=== PATIENT | female | born 1990 | race Caucasian/White ===

== ENCOUNTER → 2016-09-28 | Emergency (ER) | payer OTHER ==
[~2016-09-28] MED LIST: IBUPROFEN 800 MG/8 ML IJ IVPB ONE; PANTOPRAZOLE SODIUM 100 ML IVPB ONE
[2016-09-28 10:48] VITALS: BP 114/67; PULSE 80; TEMP 98; BMI 32.1
== END | disposition left against medical advice (07) ==
LOC: JER 10:43
DX: Z53.21 Procedure and treatment not carried out due to patient leaving prior to being seen by health care provider (principal)
CPT/HCPCS: 99281-25

== ENCOUNTER 2016-10-21 16:04 | Emergency (ER) | payer OTHER ==
[2016-10-21 16:35] VITALS: BMI 32.4
--- NOTE | 2016-10-21 19:22 | PDOC ---
History of Present Illness - General History Source: Patient Exam Limitations: No Limitations - History of Present Illness Initial Comments: 10/21/16 20:11 The patient is a 25-year-old female, with a significant past medical history of a fibroma and a ruptured ovarian cyst, who presents to the ED with 1 month of epigastric and inguinal pain. The patient recently visited her PHARMACOMETRICIAN doctor and they identified a new fibroma and want to see if it is growing. She reports taking Tylenol for her pain, but her pain progressively worsened in the past few days and the medication does not seem to help it anymore. She reports having difficulty eating and sleeping due to the pain. Pt also reports some pain on urination. She states that her urine feels hot but she denies any vaginal discharge or foul smelling urine. Last menstrual period was on September 16; patient is taking contraceptives. The patient denies any fever, chills, nausea, vomiting, diarrhea, constipation, shortness of breath, or chest pain. <Marium Dhaliwal - Last Filed: 10/21/16 20:11> - General History Source: Patient Exam Limitations: No Limitations <Sabra Romano - Last Filed: 10/22/16 00:08> - General Chief Complaint: Pain, Acute Stated Complaint: ABD PAIN Time Seen by Provider: 10/21/16 19:05 Past History <Marium Dhaliwal - Last Filed: 10/21/16 20:11> - Past Medical History Asthma: No Cancer: No Cardiac Disorders: No Diabetes: No HTN: No Seizures: No Thyroid Disease: No Other medical history: ovarian cyst - Immunization History Immunization Up to Date: Yes - Psycho/Social/Smoking Cessation Hx Anxiety: No Suicidal Ideation: No Smoking History: Never smoked Number of Cigarettes Smoked Daily: 0 Cigars Per Day: 0 Hx Alcohol Use: No Drug/Substance Use Hx: No Substance Use Type: None Hx Substance Use Treatment: No <Sabra Romano - Last Filed: 10/22/16 00:08> - Past Medical History Allergies/Adverse Reactions: Allergies Allergy/AdvReac Type Severity Reaction Status Date / Time No Known Allergies Allergy Verified 10/21/16 16:29 Home Medications: Ambulatory Orders Cephalexin Monohydrate [Keflex -] 500 mg PO BID #14 capsule 05/14/15 Dicyclomine HCl [Bentyl -] 10 mg PO TID PRN #28 capsule 10/22/16 Nitrofurantoin Monohyd/M-Cryst [Macrobid -] 100 mg PO BID #14 capsule 10/22/16 Ranitidine HCl [Zantac] 150 mg PO DAILY #30 tablet 10/22/16 Review of Systems - Review of Systems Able to Perform ROS?: Yes Comments:: 10/21/16 20:18 GENERAL/CONSTITUTIONAL: No: fever, chills, weakness. Yes: loss of appetite. HEAD, EYES, EARS, NOSE AND THROAT: No: change in vision, ear pain, discharge, sore throat, throat swelling. CARDIOVASCULAR: No: chest pain, lightheadedness, palpitations, syncope RESPIRATORY: No: cough, shortness of breath, wheezing, hemoptysis, stridor. GASTROINTESTINAL: No: nausea, vomiting, diarrhea, rectal bleeding, constipation. Yes: abdominal pain GENITOURINARY: No: hematuria, urgency, flank pain. Yes: frequency, dysuria MUSCULOSKELETAL: No: back pain, neck pain, joint pain, muscle swelling. SKIN AND BREASTS: No: lesions, pallor, rash or easy bruising. NEUROLOGIC: No: headache, vertigo, paresthesias, weakness ENDOCRINE: No: unexplained weight gain or loss HEMATOLOGIC/LYMPHATIC: No: anemia, easy bleeding, swelling nodes <Marium Dhaliwal - Last Filed: 10/21/16 20:11> *Physical Exam - Vital Signs Last Vital Signs Temp Pulse Resp BP Pulse Ox 98.1 F 90 16 137/77 97 10/21/16 18:13 10/21/16 18:13 10/21/16 18:13 10/21/16 18:13 10/21/16 18:13 - Physical Exam Comments: 10/21/16 20:25 GENERAL: The patient is in no acute distress. HEAD: Normal with no signs of trauma. EYES: PERRLA, EOMI, sclera anicteric, conjunctiva clear. ENT: Ears normal, nares patent, oropharynx clear without exudates. Moist mucous membranes. NECK: Normal range of motion, supple without lymphadenopathy, JVD, or masses. LUNGS: Breath sounds equal, clear to auscultation bilaterally. No wheezes, and no crackles. HEART:Regular rate and rhythm, normal S1 and S2 without murmur, rub or gallop. ABDOMEN: Soft, normoactive bowel sounds. No guarding, no rebound. (+)Left lower quadrant tenderness, epigastric tenderness. EXTREMITIES: Normal range of motion, no edema. No clubbing or cyanosis. No erythema, or tenderness. NEUROLOGICAL: Cranial nerves II through XII grossly intact. Normal speech. No focal neurological deficits. MUSCULOSKELETAL: Back non-tender to palpation, no CVA tenderness SKIN: Warm, Dry, normal turgor, no rashes or lesions noted. <Marium Dhaliwal - Last Filed: 10/21/16 20:11> - Vital Signs Last Vital Signs Temp Pulse Resp BP Pulse Ox 98.1 F 90 16 137/77 97 10/21/16 18:13 10/21/16 18:13 10/21/16 18:13 10/21/16 18:13 10/21/16 18:13 <Sabra Romano - Last Filed: 10/22/16 00:08> ED Treatment Course - LABORATORY CBC & Chemistry Diagram: 10/21/16 19:20 10/21/16 19:20 <Sabra Romano - Last Filed: 10/22/16 00:08> Medical Decision Making - Medical Decision Making 10/21/16 19:21 A portion of this note was documented by scribe services under my direction. I have reviewed the details of the note, within reason, and agree with the documentation with the following case summary and management plan written by me. Nursing documentation reviewed and incorporated into medical decision making 10/21/16 22:24 This is a 25-year-old female with no significant past medical history presented to emergency department with a complaint of abdominal pain. Patient states her symptoms have been present for the past month. Patient notes epigastric and lower abdominal pain. She describes her pain as sharp, rated 10/10, no radiation. No exacerbating factors. Pain is intermittent. No fevers or chills. No nausea, no vomiting, no diarrhea. No recent travel Patient is tolerating by mouth. Patient was seen by ELECTROPLATER HELPER who states that pt has a fibroma Pt concerned that this fibroma is enlarging Laboratory Tests 10/21/16 10/21/16 19:20 19:20 WBC 6.3 D Hgb 14.2 Hct 41.2 Plt Count 306 Neutrophils % 45.6 D Lymphocytes % 44.2 H D BUN 9 Creatinine 0.6 Random Glucose 131 H D AST 15 ALT 30 Total Amylase 62 Lipase 124 10/21/16 22:[address] demonstrates small periumbilical hernias, fat containing hernias Right complex ovarian mass Pt has no RLQ pain, pain is in the LLQ Exercise Science Internship: (tri) Begin of Report Content Referring Physician: Sabra Romano Patient Name: Nasrin Phillips THIS IS A PRELIMINARY REPORT FROM [facility] NURSE IMAGES: 488 EXAM DATE AND TIME: 2016-10-21 21:50:08.0 EXAM: CT ABDOMEN AND PELVIS WITH CONTRAST 6.2 cm complex right adenxal mass containing fat density and small calcification , 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 Advise further evaluation with ultrasound if there is concern for torsion. (In addition, if not surgically removed, advise yearly ultrasound follow-up to ensure stability.) Unremarkable left ovary. No bowel obstruction, colitis, free fluid or free air. Normal appendix. Diverticulosis colon without acute diverticulitis. Unremarkable pancreas, kidneys and gallbladder. Small periumbilical hernias containing fat. THIS DOCUMENT HAS BEEN ELECTRONICALLY SIGNED Candy Armstrong M.D. 10/21/2016 22:22 JEREMIAS Mcintosh Please call [facility] Logistics Analyst [phone] ([phone]) with questions. <Sabra Romano - Last Filed: 10/22/16 00:08> *DC/Admit/Observation/Transfer - Attestations Scribe Attestion: 10/21/16 20:26 Documentation prepared by Marium Dhaliwal, acting as medical psychotherapist for Sabra Romano MD. <Marium Dhaliwal - Last Filed: 10/21/16 20:11> - Discharge Dispostion Admit: No <Sabra Romano - Last Filed: 10/22/16 00:08> Diagnosis at time of Disposition: Hernia Ovarian cyst Qualifiers: Laterality: right Qualified Code(s): N83.20 - Unspecified ovarian cysts Urinary tract infection Qualifiers: Urinary tract infection type: acute cystitis Hematuria presence: without hematuria Qualified Code(s): N30.00 - Acute cystitis without hematuria - Discharge Dispostion Disposition: HOME Condition at time of disposition: Improved - Referrals Referrals: Leidy Day MD [Staff Physician] - - Patient Instructions Printed Discharge Instructions: DI for Ventral Hernia, DI for Abdominal Pain- Adult, DI for Ovarian Cyst Additional Instructions: Please follow up with your primary care physician and tripe finisher (within 2-3 days) You have a complex ovarian cyst that will need to be followed closely by your tripe finisher Return to the ER for any other concerns or complaints Please take medications as prescribed Print Language: QATARI
[2016-10-21 20:16] LABS: BASOPHIL 0.8 % (0-2.0); EOSINOPHIL 1.7 % (0-4.5); MCHC 34.5 g/dl (32.0-36.0); MEAN CELL VOLUME 86.9 fl (80-96); MEAN PLT VOLUME 7.8 fl (7.5-11.1); NEUTROPHILS 45.6 % (42.8-82.8); PLATELET COUNT 306 K/MM3 (134-434); RDW 13.3 % (11.6-15.6); WHITE BLOOD COUNT 6.3 K/mm3 (4.0-10.0)
[2016-10-21 20:43] LABS: ALBUMIN 4.3 g/dl (3.4-5.0); AMYLASE 62 U/L (25-115); ANION GAP 7 (8-16); CALCIUM 9.1 mg/dL (8.5-10.1); CO2 25 mmol/L (21-32); CREATININE 0.6 mg/dL (0.55-1.02); GLUCOSE,RANDOM 131 mg/dL (74-106); SGOT/AST 15 U/L (15-37); SGPT/ALT 30 U/L (12-78)
[2016-10-21 20:44] LABS: ALK PHOS 102 U/L (45-117); BILIRUBIN,TOTAL 0.3 mg/dL (0.2-1.0); TOT PROT 7.6 g/dl (6.4-8.2)
[2016-10-21] MEDS ORDERED: IBUPROFEN 800 MG/8 ML IJ IVPB ONE (22:08)
[2016-10-21] MEDS ORDERED: PANTOPRAZOLE SODIUM 40 MG in SODIUM CHLORIDE 100 ML IVPB ONE (22:09)
[2016-10-21 22:28] VITALS: BP 129/75; PULSE 71; TEMP 99.3
[2016-10-21 23:15] LABS: URINE COLOR YELLOW
[2016-10-21 23:16] LABS: URINE APPEARANCE CLEAR; URINE BILIRUBIN NEGATIVE (NEGATIVE); URINE BLOOD NEGATIVE (NEGATIVE); URINE GLUCOSE (UA) NEGATIVE (NEGATIVE); URINE KETONE NEGATIVE (NEGATIVE); URINE NITRITE NEGATIVE (NEGATIVE); URINE PROTEIN NEGATIVE (NEGATIVE)
[2016-10-21 23:17] LABS: URINE LEUK ESTERASE 1+ (NEGATIVE)
[2016-10-21 23:25] LABS: URINE MUCUS RARE; URINE RBC 5 /hpf (0-3); URINE WBC 6 /hpf (3-5)
[2016-10-21 23:26] LABS: URINE UROBILINOGEN 0.2 E.U/dl E.U./dl (0.2-1.0)
== END 2016-10-22 00:41 | disposition home or self-care (01) ==
LOC: JER 16:04
PROC: 3E033GC Introduction of Other Therapeutic Substance into Peripheral Vein, Percutaneous Approach (ICD-10-PCS; principal; 2016-10-21)
PROC: 3E0333Z Introduction of Anti-inflammatory into Peripheral Vein, Percutaneous Approach (ICD-10-PCS; 2016-10-21)
DX: N30.00 Acute cystitis without hematuria (principal); N83.291 Other ovarian cyst, right side; K42.9 Umbilical hernia without obstruction or gangrene
CPT/HCPCS: 36415; 74177-TC; 80053; 81003; 81015; 82150; 83690; 84703; 85025; 87086; 96365; 96375; 99284-25

== ENCOUNTER 2019-03-30 23:40 | Inpatient (IN) | payer OTHER ==
[~2019-03-30 23:40] MED LIST changes: +ELECTROLYTE-148 SOLN 500 ML IV ONE; -IBUPROFEN 800 MG/8 ML IJ IVPB ONE; -PANTOPRAZOLE SODIUM 100 ML IVPB ONE
[2019-03-30] MEDS ORDERED: ELECTROLYTE-148 SOLN 500 ML IV ONE (23:50)
[2019-03-31] MEDS: DEXTROSE 5%-LACTATED RINGERS 1,000 ML IV SCH (00:30)
[2019-03-31 00:50] LABS: BASO % 0.3 % (0-2.0); EOS % 0.3 % (0-4.5); HEMATOCRIT 28.4 % (32.4-45.2); HEMOGLOBIN 9.6 GM/dL (10.7-15.3); LYMPH % 17.5 % (8-40); MCH 28.8 pg (25.7-33.7); MCHC 33.9 g/dl (32.0-36.0); MEAN CELL VOLUME 84.8 fl (80-96); MONO % 6.7 % (3.8-10.2); NEUT % 75.2 % (42.8-82.8); PLATELET COUNT 171 K/MM3 (134-434); RBC 3.34 M/mm3 (3.60-5.2); RDW 15.5 % (11.6-15.6); WHITE BLOOD COUNT 8.2 K/mm3 (4.0-10.0)
[2019-03-31 01:04] LABS: INR 0.95 (0.83-1.09); PROTHROMBIN TIME (PATIENT) 11.2 SEC (9.7-13.0)
[2019-03-31 01:06] LABS: ACTIVATED PTT 24.7 SECONDS (25.2-36.5)
[2019-03-31 01:10] LABS: BLOOD UREA NITROGEN 15.5 mg/dL (7-18); CALCIUM 8.2 mg/dL (8.5-10.1); CREATININE 0.6 mg/dL (0.55-1.3)
[2019-03-31 02:16] VITALS: BMI 38.2
--- NOTE | 2019-03-31 03:28 | HP ---
Past Medical History - Admission Chief Complaint: Rupture of membrane History of Present Illness: 28 yo @ 39 weeks gestation, EDC 04/04/19, admitted for spontaneous rupture of membrane. Patient was initially scheduled for external version due to breech presentation. Upon admission, a sonogram performed at bedside showed vertex presentation. History Source: Patient Limitations to Obtaining History: No Limitations - Past Medical History ...: 7 ...Para: 3 ...Term: 2 ...: 0 ...Spon : 2 ...Induced : 1 ...Multiple Gestation: 0 ...LMP: 07/06/18 ... Weeks Gestation by Dates: 38.2 ...EDC by Dates: 04/12/19 ...EDC by Sono: 04/04/19 - Past Surgical History Past Surgical History: Yes: None Hx Myomectomy: No Hx Transabdominal Cerclage: No - Smoking History Smoking history: Never smoked Have you smoked in the past 12 months: Yes Aproximately how many cigarettes per day: 0 - Alcohol/Substance Use Hx Alcohol Use: No Home Medications - Allergies Allergies/Adverse Reactions: Allergies Allergy/AdvReac Type Severity Reaction Status Date / Time No Known Allergies Allergy Verified 02/05/19 11:53 - Home Medications Home Medications: Ambulatory Orders Ferrous Sulfate [Iron] 325 mg PO BID 02/05/19 Pnv No.95/Ferrous Fum/Folic AC [ Multivitamin Tablet] 1 each PO DAILY Family Disease History - Family Disease History Family History: Unremarkable Review of Systems - Review of Systems Constitutional: reports: No Symptoms Eyes: reports: No Symptoms HENT: reports: No Symptoms Neck: reports: No Symptoms Cardiovascular: reports: No Symptoms Respiratory: reports: No Symptoms Gastrointestinal: reports: No Symptoms Genitourinary: reports: Pain Musculoskeletal: reports: No Symptoms Neurological: reports: No Symptoms Psychiatric: reports: No Symptoms Pain Intensity: 6 Physical Exam - Maternity Vital Signs: Vital Signs Temperature 98.8 F 03/31/19 02:30 Pulse Rate 81 03/31/19 02:30 Respiratory Rate 20 03/31/19 02:30 Blood Pressure 106/54 L 03/31/19 02:30 O2 Sat by Pulse Oximetry (%) Constitutional: Yes: Well Nourished Eyes: Yes: Conjunctiva Clear HENT: Yes: Atraumatic Neck: Yes: Supple Cardiovascular: Yes: Regular Rate and Rhythm Lungs: Clear to auscultation - Abdominal Exam/OB Number of Fetuses: Single Presentation: Vertex - Vaginal Exam/OB Presentation: Vertex/Position Station: -2 - Physical Exam Musculoskeletal: Yes: WNL Extremities: Yes: WNL ...Motor Strength: WNL Psychiatric: Yes: Alert, Oriented - Labs Lab Results: CBC, BMP 03/31/19 00:30 03/31/19 00:30 Problem List - Problems (1) 39 weeks gestation of Code(s): Z3A.39 - 39 WEEKS GESTATION OF (2) Rupture of membranes with clear amniotic fluid Code(s): CXM9135 - Assessment/Plan 39 weeks gestation of Spontaneous rupture of membrane Admit to L&D Analgesia as needed Anticipate
[2019-03-31] MEDS ORDERED: PROMETHAZINE HCL 25 MG/1 ML VIAL IVPUSH ONE (03:37)
[2019-03-31] MEDS ORDERED: BUTORPHANOL TARTRATE 2 MG/ML VIAL IVPUSH PRN (03:37)
[2019-03-31] MEDS ORDERED: OXYTOCIN 30 UNITS in 0.9% NS 30 UNIT/500 ML INFUS.BAG IVPB ONE ×2 (03:51→06:31)
[2019-03-31] MEDS: ELECTROLYTE-148 SOLN 1,000 ML IV SCH (07:30)
[2019-03-31] MEDS ORDERED: BUPIVACAINE 0.75% IN DEXTROSE/PF 2ML AMPULE NR ONE (07:32)
--- NOTE | 2019-03-31 07:55 | PN ---
Progress Note (short form) - Note Progress Note: Patient progressed to 9cm but head failed to descent. Suspect macrosomia. Decision made for Consent signed Prep and shave Anesthesia to see patient. Problem List - Problems (1) 39 weeks gestation of Code(s): Z3A.39 - 39 WEEKS GESTATION OF (2) Rupture of membranes with clear amniotic fluid Code(s): KLM3544 -
[2019-03-31] MEDS ORDERED: CITRIC ACID/SODIUM CITRATE 30 ML UNIT-DOSE CUP PO ONE (08:04)
[2019-03-31] MEDS ORDERED: ePHEDrine SULFATE 50 MG/1 ML AMPULE ONE (08:21)
[2019-03-31] MEDS ORDERED: ceFAZolin SODIUM 1 GM VIAL ONE (09:02)
[2019-03-31] MEDS ORDERED: KETOROLAC TROMETHAMINE 30 MG/1 ML VIAL ONE (09:02)
[2019-03-31] MEDS ORDERED: METHYLERGONOVINE MALEATE 0.2 MG/1 ML AMP IM PRN (09:18)
[2019-03-31] MEDS ORDERED: IBUPROFEN 800 MG/8 ML IJ IVPB PRN (09:18)
--- NOTE | 2019-03-31 09:22 | OP ---
Operative Note - Note: Operative Date: 03/31/19 Pre-Operative Diagnosis: 39 weeks gestation / Arrest of descent Operation: Primary Low Transverse / Myomectomy Findings: Baby boy in OP position Post-Operative Diagnosis: Other (Arrest of descent / Leiomyoma of the uterus) Surgeon: Maty Cote Carpet Jack: Shaun Corrales Anesthesia: Spinal Specimens Removed: Placenta / Fibroid Estimated Blood Loss (mls): 700
[2019-03-31] MEDS: OXYTOCIN 20 UNITS in 0.9% NS 20 UNIT/1,000 ML INFUS.BAG IV SCH (09:30)
[2019-03-31] MEDS ORDERED: IBUPROFEN 600 MG TABLET (FP) PO PRN (09:37)
[2019-03-31] MEDS ORDERED: ONDANSETRON 4 MG/2 ML VIAL IVPUSH PRN (09:37)
[2019-03-31 09:39] LABS: VENOUS PC02 41.3 mmHg (41-51); VENOUS PH 7.33 (7.31-7.41); VENOUS PO2 32.7 mmHg (30-40)
[2019-03-31] MEDS: FERROUS SO4 325 MG TABLET (FP) PO SCH ×2 (10:41→16:30)
[2019-03-31] MEDS: PRENATAL VITAMINS W/ FOLIC ACID TABLET (FP) PO SCH (10:41)
[2019-03-31] MEDS: IBUPROFEN 600 MG TABLET (FP) PO PRN (22:48)
[2019-03-31] MEDS: SIMETHICONE 80 MG TAB.CHEW (FP) PO PRN (22:48)
[2019-03-31] MEDS: ACETAMINOPHEN 325 MG TABLET (FP) PO PRN (22:49)
--- NOTE | 2019-04-01 06:24 | PN ---
Post Progress Note - Subjective Subjective: doing well, pain controlled, breast feeding, not yet ambulating, tolerating PO, rich removed recently Post Day: 1 Type of Delivery: Primary C/S Vital Signs: Vital Signs Temperature 97.8 F 04/01/19 05:36 Pulse Rate 82 04/01/19 05:36 Respiratory Rate 18 04/01/19 06:00 Blood Pressure 102/46 L 04/01/19 05:36 O2 Sat by Pulse Oximetry (%) 99 03/31/19 11:35 Breast Exam: Yes: Other (deferred) Uterus: Yes: Fundus Firm Incision: Yes: [place] dry and intact, [place] intact Abdomen/GI: Yes: Abdomen soft Lochia, amount: Moderate Extremities: Yes: Calves non-tender Activity: Ambulating (encouraged), Other (not yet ambulating) - Labs Labs: CBC WBC 8.2 K/mm3 (4.0-10.0) 03/31/19 00:30 RBC 3.34 M/mm3 (3.60-5.2) L 03/31/19 00:30 Hgb 9.6 GM/dL (10.7-15.3) L 03/31/19 00:30 Hct 28.4 % (32.4-45.2) L D 03/31/19 00:30 MCV 84.8 fl (80-96) 03/31/19 00:30 MCH 28.8 pg (25.7-33.7) 03/31/19 00:30 MCHC 33.9 g/dl (32.0-36.0) 03/31/19 00:30 RDW 15.5 % (11.6-15.6) D 03/31/19 00:30 Plt Count 171 K/MM3 (134-434) D 03/31/19 00:30 MPV 9.0 fl (7.5-11.1) D 03/31/19 00:30 Absolute Neuts (auto) 6.2 K/mm3 (1.5-8.0) 03/31/19 00:30 Neutrophils % 75.2 % (42.8-82.8) D 03/31/19 00:30 Lymphocytes % 17.5 % (8-40) D 03/31/19 00:30 Monocytes % 6.7 % (3.8-10.2) 03/31/19 00:30 Eosinophils % 0.3 % (0-4.5) 03/31/19 00:30 Basophils % 0.3 % (0-2.0) 03/31/19 00:30 Nucleated RBC % 0 % (0-0) 03/31/19 00:30 Assessment/Plan 28 y/o on POD # 1 S/P PLTCS for arrest of decent in stable condition -Continue PP/post-op care
[2019-04-01] MEDS: SIMETHICONE 80 MG TAB.CHEW (FP) PO PRN ×3 (07:59→17:51)
[2019-04-01 08:04] LABS: BASO % 0.1 % (0-2.0); EOS % 0.1 % (0-4.5); LYMPH % 12.8 % (8-40); MCH 28.7 pg (25.7-33.7); MCHC 32.9 g/dl (32.0-36.0); MEAN CELL VOLUME 87.2 fl (80-96); MONO % 6.2 % (3.8-10.2); NEUT % 80.8 % (42.8-82.8); PLATELET COUNT 150 K/MM3 (134-434); RBC 2.18 M/mm3 (3.60-5.2); RDW 16.1 % (11.6-15.6); WHITE BLOOD COUNT 10.1 K/mm3 (4.0-10.0)
[2019-04-01] MEDS: FERROUS SO4 325 MG TABLET (FP) PO SCH ×2 (08:04→17:51)
[2019-04-01] MEDS: ACETAMINOPHEN 325 MG TABLET (FP) PO PRN ×4 (08:04→21:31)
[2019-04-01] MEDS: IBUPROFEN 600 MG TABLET (FP) PO PRN ×4 (08:05→21:30)
[2019-04-01 08:21] LABS: HEMOGLOBIN 6.3 GM/dL (10.7-15.3)
--- NOTE | 2019-04-01 09:16 | PN ---
Progress Note, Physician Chief Complaint: s/p c section under spinal anesthsia History of Present Illness: post op day one duramorph for post op pain control - Current Medication List Current Medications: Active Medications Acetaminophen (Tylenol -) 650 mg PO Q4H PRN PRN Reason: MILD PAIN Last Admin: 04/01/19 08:04 Dose: 650 mg Bisacodyl (Dulcolax Suppository -) 10 mg RC PRN PRN PRN Reason: CONSTIPATION Butorphanol Tartrate (Butorphanol Tartrate) 2 mg IVPUSH Q4H PRN PRN Reason: PAIN Last Admin: 03/31/19 03:50 Dose: 2 mg Diphtheria/Tetanus/Acell Pertussis (Boostrix -) 0.5 ml IM .ONCE ONE Stop: 04/01/19 10:01 Ferrous Sulfate (Feosol -) 325 mg PO BIDWM [facility] Last Admin: 04/01/19 08:04 Dose: 325 mg Dextrose/Lactated Ringer's (D5-Lr -) 1,000 mls @ 125 mls/hr IV ASDIR [facility] Last Admin: 03/31/19 00:30 Dose: 125 mls/hr Parenteral Electrolytes (Plasma-Lyte 148 -) 1,000 mls @ 125 mls/hr IV ASDIR [facility] Last Admin: 03/31/19 07:30 Dose: 125 mls/hr Oxytocin/Sodium Chloride (Normal Saline+20 Units Oxytocin -) 20 unit in 1,000 mls @ 125 mls/hr IV ASDIR [facility] Last Admin: 03/31/19 09:30 Dose: 125 mls/hr Ibuprofen (Motrin -) 600 mg PO Q4H PRN PRN Reason: PAIN LEVEL 1 - 3 Last Admin: 04/01/19 08:05 Dose: 600 mg Ibuprofen (Caldolor Injection -) 800 mg IVPB Q8H PRN PRN Reason: PAIN LEVEL 6-10 Last Admin: 03/31/19 16:26 Dose: 800 mg Ibuprofen (Motrin -) 600 mg PO Q4H PRN PRN Reason: PAIN LEVEL 1-5 Methylergonovine Maleate (Methergine Injection -) 0.2 mg IM Q4H PRN PRN Reason: Excessive Bleeding (L&D) Ondansetron HCl (Zofran Injection) 4 mg IVPUSH Q4H PRN PRN Reason: NAUSEA Oxycodone HCl (Roxicodone -) 5 mg PO Q4H PRN PRN Reason: PAIN LEVEL 4 - 6 Multivit/Folic Acid/Iron ( Vitamins (Sjr) -) 1 tab PO DAILY SHERRY Last Admin: 03/31/19 10:41 Dose: Not Given Simethicone (Mylicon -) 80 mg PO Q4H PRN PRN Reason: GAS Last Admin: 04/01/19 07:59 Dose: 80 mg - Objective Vital Signs: Vital Signs Temperature 97.8 F 04/01/19 05:36 Pulse Rate 82 04/01/19 05:36 Respiratory Rate 18 04/01/19 06:00 Blood Pressure 102/46 L 04/01/19 05:36 O2 Sat by Pulse Oximetry (%) 99 03/31/19 11:35 Constitutional: Yes: Well Nourished Cardiovascular: Yes: WNL Respiratory: Yes: WNL Gastrointestinal: Yes: WNL Labs: CBC, BMP 04/01/19 07:21 03/31/19 00:30 INR, PTT INR 0.95 (0.83-1.09) 03/31/19 00:30 Assessment/Plan No adverse anesthetic complications, pain controlled, no further intervention from the department of anesthesia
[2019-04-01] MEDS ORDERED: BISACODYL 10 MG SUPP.RECT RC PRN (09:18)
[2019-04-01] MEDS ORDERED: DIPHTH,PERTUSS(ACELL),TET 0.5 ML DISP.SYRIN IM ONE (10:00)
[2019-04-01] MEDS: PRENATAL VITAMINS W/ FOLIC ACID TABLET (FP) PO SCH (10:25)
[2019-04-02] MEDS: IBUPROFEN 600 MG TABLET (FP) PO PRN ×2 (05:10→20:36)
[2019-04-02] MEDS: ACETAMINOPHEN 325 MG TABLET (FP) PO PRN ×2 (05:11→13:11)
[2019-04-02] MEDS: FERROUS SO4 325 MG TABLET (FP) PO SCH ×2 (07:21→17:54)
[2019-04-02] MEDS: oxyCODONE HCL 5 MG TABLET PO PRN ×3 (07:25→20:35)
[2019-04-02] MEDS: SIMETHICONE 80 MG TAB.CHEW (FP) PO PRN ×3 (07:26→20:35)
[2019-04-02] MEDS: PRENATAL VITAMINS W/ FOLIC ACID TABLET (FP) PO SCH (09:54)
[2019-04-02 11:29] LABS: BASO % 0.2 % (0-2.0); EOS % 0.7 % (0-4.5); HEMATOCRIT 18.6 % (32.4-45.2); LYMPH % 14.1 % (8-40); MCH 29.4 pg (25.7-33.7); MCHC 33.8 g/dl (32.0-36.0); MEAN PLT VOLUME 8.9 fl (7.5-11.1); PLATELET COUNT 183 K/MM3 (134-434); RBC 2.14 M/mm3 (3.60-5.2); RDW 15.6 % (11.6-15.6); WHITE BLOOD COUNT 10.7 K/mm3 (4.0-10.0)
[2019-04-02 11:50] LABS: HEMOGLOBIN 6.3 GM/dL (10.7-15.3)
--- NOTE | 2019-04-02 14:16 | PN ---
Post Progress Note - Subjective Subjective: Patient is doing well, ambulating, tolerating PO, denies lightheadedness, weakness Type of Delivery: Primary C/S Vital Signs: Vital Signs Temperature 98.8 F 04/02/19 13:48 Pulse Rate 83 04/02/19 13:48 Respiratory Rate 20 04/02/19 13:48 Blood Pressure 109/66 04/02/19 13:48 O2 Sat by Pulse Oximetry (%) 99 03/31/19 11:35 Breast Exam: Yes: Other (deferred) Uterus: Yes: Fundus Firm Incision: Yes: [place] intact Abdomen/GI: Yes: Abdomen soft Lochia, amount: Moderate Extremities: Yes: Calves non-tender, Calf tenderness (bilaterally) Activity: Ambulating - Labs Labs: CBC WBC 10.7 K/mm3 (4.0-10.0) H 04/02/19 10:45 RBC 2.14 M/mm3 (3.60-5.2) L 04/02/19 10:45 Hgb 6.3 GM/dL (10.7-15.3) L* 04/02/19 10:45 Hct 18.6 % (32.4-45.2) L 04/02/19 10:45 MCV 87.0 fl (80-96) 04/02/19 10:45 MCH 29.4 pg (25.7-33.7) 04/02/19 10:45 MCHC 33.8 g/dl (32.0-36.0) 04/02/19 10:45 RDW 15.6 % (11.6-15.6) 04/02/19 10:45 Plt Count 183 K/MM3 (134-434) D 04/02/19 10:45 MPV 8.9 fl (7.5-11.1) 04/02/19 10:45 Absolute Neuts (auto) 8.7 K/mm3 (1.5-8.0) H 04/02/19 10:45 Neutrophils % 81.0 % (42.8-82.8) 04/02/19 10:45 Lymphocytes % 14.1 % (8-40) 04/02/19 10:45 Monocytes % 4.0 % (3.8-10.2) 04/02/19 10:45 Eosinophils % 0.7 % (0-4.5) D 04/02/19 10:45 Basophils % 0.2 % (0-2.0) 04/02/19 10:45 Nucleated RBC % 0 % (0-0) 04/02/19 10:45 Problem List - Problems (1) Anemia Code(s): D64.9 - ANEMIA, UNSPECIFIED Assessment/Plan 28 y/o on POD # 1 S/P PLTCS for arrest of decent, Severe asymptomatic anemia. Counseled regarding blood transfusion and accepted -Continue PP/post-op care -Transfuse 1 PRBC -CBC 4 hrs post transfusion
[2019-04-02 23:28] LABS: BASO % 0.3 % (0-2.0); EOS % 0.6 % (0-4.5); HEMATOCRIT 20.4 % (32.4-45.2); LYMPH % 19.5 % (8-40); MCH 29.4 pg (25.7-33.7); MCHC 34.4 g/dl (32.0-36.0); MEAN CELL VOLUME 85.5 fl (80-96); MEAN PLT VOLUME 8.7 fl (7.5-11.1); MONO % 6.4 % (3.8-10.2); NEUT % 73.2 % (42.8-82.8); PLATELET COUNT 182 K/MM3 (134-434); RBC 2.39 M/mm3 (3.60-5.2); RDW 15.1 % (11.6-15.6); WHITE BLOOD COUNT 10.3 K/mm3 (4.0-10.0)
[2019-04-03] LABS: PLATELET ESTIMATE ADEQUATE
--- NOTE | 2019-04-03 06:05 | PN ---
Post Progress Note - Subjective Subjective: Received 1U PRBC yesterday. No fevers/chills Not ambulating w difficulty. No symptoms of anemia. Post Day: 3 Type of Delivery: Primary C/S Vital Signs: Vital Signs Temperature 98.4 F 04/02/19 22:00 Pulse Rate 76 04/02/19 22:00 Respiratory Rate 20 04/02/19 22:00 Blood Pressure 112/59 L 04/02/19 22:00 O2 Sat by Pulse Oximetry (%) 99 03/31/19 11:35 Uterus: Yes: Fundus Firm Incision: Yes: [place] intact Abdomen/GI: Yes: Abdomen soft Lochia: Yes: Rubra Lochia, amount: Small Extremities: Yes: Calves non-tender Perineum: Yes: Intact Activity: Ambulating - Labs Labs: CBC WBC 10.3 K/mm3 (4.0-10.0) H 04/02/19 23:00 RBC 2.39 M/mm3 (3.60-5.2) L 04/02/19 23:00 Hgb 7.0 GM/dL (10.7-15.3) L 04/02/19 23:00 Hct 20.4 % (32.4-45.2) L 04/02/19 23:00 MCV 85.5 fl (80-96) 04/02/19 23:00 MCH 29.4 pg (25.7-33.7) 04/02/19 23:00 MCHC 34.4 g/dl (32.0-36.0) 04/02/19 23:00 RDW 15.1 % (11.6-15.6) 04/02/19 23:00 Plt Count 182 K/MM3 (134-434) 04/02/19 23:00 MPV 8.7 fl (7.5-11.1) 04/02/19 23:00 Absolute Neuts (auto) 7.5 K/mm3 (1.5-8.0) 04/02/19 23:00 Neutrophils % 73.2 % (42.8-82.8) 04/02/19 23:00 Neutrophils % (Manual) 64.0 % (42.8-82.8) 04/02/19 23:00 Band Neutrophils % 5.0 % 04/02/19 23:00 Lymphocytes % 19.5 % (8-40) D 04/02/19 23:00 Lymphocytes % (Manual) 24.0 % (8-40) 04/02/19 23:00 Monocytes % 6.4 % (3.8-10.2) 04/02/19 23:00 Monocytes % (Manual) 3 % (3.8-10.2) L 04/02/19 23:00 Eosinophils % 0.6 % (0-4.5) 04/02/19 23:00 Eosinophils % (Manual) 2.0 % (0-4.5) 04/02/19 23:00 Basophils % 0.3 % (0-2.0) 04/02/19 23:00 Basophils % (Manual) 0.0 % (0-2.0) 04/02/19 23:00 Myelocytes % (Man) 1 % (0-2) 04/02/19 23:00 Nucleated RBC % 0 % (0-0) 04/02/19 23:00 Metamyelocytes 1 % (0-2) 04/02/19 23:00 Platelet Estimate Adequate 04/02/19 23:00 Assessment/Plan 28yo s/p PLTCS, POD#3 Labs reviewed, poor response to 1U PRBC, discussed one additional unit today Dopplers negative for DVT Po Pain control Po Iron for anemia Routine PP care D/C to home tomorrow with follow up in one week. Shayy Henry MD
[2019-04-03 08:00] LABS: BASO % 0.3 % (0-2.0); EOS % 1.1 % (0-4.5); HEMATOCRIT 19.9 % (32.4-45.2); LYMPH % 20.1 % (8-40); MCH 29.3 pg (25.7-33.7); MCHC 34.3 g/dl (32.0-36.0); MEAN CELL VOLUME 85.4 fl (80-96); MEAN PLT VOLUME 8.4 fl (7.5-11.1); MONO % 5.9 % (3.8-10.2); NEUT % 72.6 % (42.8-82.8); PLATELET COUNT 195 K/MM3 (134-434); RBC 2.33 M/mm3 (3.60-5.2); WHITE BLOOD COUNT 9.6 K/mm3 (4.0-10.0)
[2019-04-03] MEDS: FERROUS SO4 325 MG TABLET (FP) PO SCH ×2 (08:00→18:29)
[2019-04-03 08:47] LABS: HEMOGLOBIN 6.8 GM/dL (10.7-15.3)
[2019-04-03] MEDS: PRENATAL VITAMINS W/ FOLIC ACID TABLET (FP) PO SCH (10:08)
[2019-04-03] MEDS: ACETAMINOPHEN 325 MG TABLET (FP) PO PRN (10:12)
[2019-04-03] MEDS: IBUPROFEN 600 MG TABLET (FP) PO PRN (10:13)
[2019-04-03] MEDS: SIMETHICONE 80 MG TAB.CHEW (FP) PO PRN (10:14)
[2019-04-03 13:09] LABS: ANISOCYTOSIS 0; HELMET CELLS 0; HOWELL-JOLLY BODIES 0; MACROCYTOSIS 0; OVALOCYTE 0; PLATELET ESTIMATE NORMAL; ROULEAU 0; SICKELED CELLS 0; TARGET CELLS 0; TEAR DROP CELLS 0; TOXIC GRANULATION 0
[2019-04-03 23:36] LABS: BASO % 0.4 % (0-2.0); HEMATOCRIT 28.5 % (32.4-45.2); HEMOGLOBIN 9.7 GM/dL (10.7-15.3); LYMPH % 17.7 % (8-40); MCH 29.4 pg (25.7-33.7); MCHC 33.9 g/dl (32.0-36.0); MEAN CELL VOLUME 86.8 fl (80-96); MEAN PLT VOLUME 9.2 fl (7.5-11.1); MONO % 6.5 % (3.8-10.2); NEUT % 74.4 % (42.8-82.8); PLATELET COUNT 200 K/MM3 (134-434); RBC 3.29 M/mm3 (3.60-5.2); RDW 14.9 % (11.6-15.6); WHITE BLOOD COUNT 11.6 K/mm3 (4.0-10.0)
[2019-04-04 00:33] LABS: PLATELET ESTIMATE ADEQUATE
[2019-04-04] MEDS: SIMETHICONE 80 MG TAB.CHEW (FP) PO PRN (03:39)
[2019-04-04] MEDS: ACETAMINOPHEN 325 MG TABLET (FP) PO PRN (03:39)
[2019-04-04] MEDS: IBUPROFEN 600 MG TABLET (FP) PO PRN (03:39)
--- NOTE | 2019-04-04 07:22 | DS ---
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 Vital Signs: Vital Signs Temperature 98.4 F 04/03/19 21:29 Pulse Rate 64 04/03/19 21:29 Respiratory Rate 20 04/03/19 21:29 Blood Pressure 129/79 04/03/19 21:29 O2 Sat by Pulse Oximetry (%) 99 03/31/19 11:35 Constitutional: Yes: Well Nourished, No Distress, Calm Eyes: Yes: WNL, Conjunctiva Clear, EOM Intact HENT: Yes: WNL, Atraumatic, Normocephalic Neck: Yes: WNL, Supple, Trachea Midline Cardiovascular: Yes: WNL, Regular Rate and Rhythm Respiratory: Yes: WNL, Regular, CTA Bilaterally Gastrointestinal: Yes: WNL ...Rectal Exam: Yes: WNL Renal/: Yes: WNL ....Post : Yes: Uterus firm, Uterus non-tender, Slight lochia rubra Breast(s): Yes: WNL Musculoskeletal: Yes: WNL Extremities: Yes: WNL Edema: LLE: Trace, RLE: Trace Integumentary: Yes: WNL Wound/Incision: Yes: Clean/Dry, Well Approximated, Sutures Intact Neurological: Yes: WNL, Alert, Oriented ...Motor Strength: WNL Psychiatric: Yes: WNL, Alert, Oriented Labs: CBC, BMP 04/03/19 22:23 03/31/19 00:30 Delivery - Delivery Type of Anesthesia: Spinal Episiotomy/Laceration: None EBL (cc): 700 Delivery, Single - Stages of Labor Date 1st Stage Initiatied: 03/30/19 Time 1st Stage Initiated: 23:30 Date 2nd Stage Initiated: 03/31/19 Time 2nd Stage Initiated: 06:45 Date of Delivery: 03/31/19 Time of Delivery: 08:37 Time Placenta Delivered: 08:38 Placenta: Yes: Expressed - 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 Name: Blanche Villanueva Gender: Male Weight: 7 lb 14 oz Position: OP Total Hours ROM (Hrs/Mins): 9h33m - 1 Minute Total Score: 9 5 Minutes Total Score: 9 - [place] Feeding Plan Initial Plan: Elected not to breastfeed exclusively throughout hospitalization Discharge Summary Reason For Visit: LABOR ADMIT Current Active Problems 39 weeks gestation of (Acute) Anemia (Acute) Rupture of membranes with clear amniotic fluid (Acute) Procedures: Principal: LST c/s Hospital Course: anemia , s/p blood transfusion Condition: Stable - Instructions Diet, Activity, Other Instructions: Regular Diet Follow up in one week for an incision check with Dr. Gaming Referrals: Dragan Gaming MD [Staff Physician] - Disposition: HOME - Home Medications Comprehensive Discharge Medication List: Ambulatory Orders Ferrous Sulfate [Iron] 325 mg PO BID 02/05/19 Pnv No.95/Ferrous Fum/Folic AC [ Multivitamin Tablet] 1 each PO DAILY Ibuprofen 600 mg PO Q6H PRN #30 tablet MDD 5 04/01/19 Oxycodone HCl/Acetaminophen [Percocet 5-325 mg Tablet -] 1 tab PO Q6H PRN 5 Days #20 tab MDD 5 04/01/19
[2019-04-04] MEDS: FERROUS SO4 325 MG TABLET (FP) PO SCH (08:28)
[2019-04-04] MEDS: ELECTROLYTE-148 SOLN 1,000 ML IV SCH (08:29)
[2019-04-04] MEDS: DEXTROSE 5%-LACTATED RINGERS 1,000 ML IV SCH (08:29)
[2019-04-04] MEDS: PRENATAL VITAMINS W/ FOLIC ACID TABLET (FP) PO SCH (09:26)
[2019-04-04] MEDS: OXYTOCIN 20 UNITS in 0.9% NS 20 UNIT/1,000 ML INFUS.BAG IV SCH (09:30)
[2019-04-04 12:32] VITALS: BP 115/80; PULSE 65; TEMP 98.9
--- NOTE | 2019-04-09 19:26 | PATH ---
Surgical Pathology Report Patient Name: CONSTANTINE JACKSON [facility]. Rec. #: [id number] /Age/Gender: 1990 (Age: 28) / F Account: [id number] Location: [facility] OBS/NURSE LIAISON Taken: 03/31/2019 Received: 04/01/2019 Reported: 04/09/2019 Physicians: Maty Cote M.D. Specimen(s) Received A: PLACENTA B: FIBROID Clinical History , 39.3 weeks, failure to descend and progress Final Diagnosis A. PLACENTA, SECTION: 490 G THIRD TRIMESTER PLACENTA WITH MODERATE TO SEVERE ACUTE CHORIOAMNIONITIS, MECONIUM-LADEN MACROPHAGES, AND TRIVASCULAR UMBILICAL CORD WITH FOCAL ACUTE MILD VASCULITIS. B. FIBROIDS, MYOMECTOMY: 42 G LEIOMYOMA(TA) WITH DEGENERATIVE CHANGES AND CALCIFICATIONS. Electronically Signed Violet Robledo M.D. Gross Description A. The specimen is received fresh labeled placenta and is a 490 gram, 17.5 x 17.0 x 2.9 cm. placenta with attached membranes and umbilical cord. The attached membranes are holt green, meconium stained, translucent with focal opacities and insert marginally. The umbilical cord measures 26 cm. in length and averages 1.2 cm. in diameter. The cord inserts eccentrically, 4.5 cm. to the nearest margin. No true knots or strictures are identified. Cut surface of the umbilical cord reveals 3 vessels. The surface is conrad green, meconium stained with moderate fibrin or position and appropriate caliber vessels. The maternal surface is red-brown with focal defects. Sectioning reveals red-brown, spongy parenchyma. No lesions are identified. P[employer] Room [employer] sections are submitted in three cassettes as follows: 1- membrane rolls and umbilical cord; 2-3- full thickness sections of placenta. B. Received in formalin labeled "fibroids," is a 42 g aggregate of 2 holt nodules measuring 2.7 and 4.5 cm in greatest dimension, consistent with fibroids. The smaller fibroid displays holt, rubbery parenchyma with whorled architecture. No areas of hemorrhage or necrosis are identified. The larger fibroid displays diffuse conrad-brown, degenerative parenchyma. P[employer] Room Manager sections are submitted in 3 cassettes as follows: 1-smaller fibroid; 2-3-larger fibroid. DL/04/04/2019 [facility]/04/04/2019
--- NOTE | 2019-04-15 08:47 | OP ---
DATE OF OPERATION: 03/30/2019 PREOPERATIVE DIAGNOSIS: A 39 weeks gestation with spontaneous rupture of membrane and arrest of descent. POSTOPERATIVE DIAGNOSIS: Arrest of descent and fibroid uterus. SURGEON: Maty Cote MD UPHOLSTERY SEWER: IMANI Chavarria ANESTHESIA: Spinal. ESTIMATED BLOOD LOSS: 700 mL. DESCRIPTION OF PROCEDURE: Patient was taken to the operating room where spinal anesthesia was administered. Patient was then prepped and draped in appropriate sterile fashion. A Pfannenstiel skin incision was then made and carried down through the underlying layer of fascia. The fascia was incised in the midline and extended laterally. The inferior aspect of the fascial incision was then grasped with Rosa clamps, elevated, and the rectus muscle dissected off bluntly. Attention was then turned to superior aspect of the fascial incision, which in a similar fashion was then grasped with Rosa clamps, elevated, and the rectus muscle dissected off bluntly. The rectus muscle was then in the midline. The peritoneum was identified and entered sharply with the Metzenbaum scissors. The vesicouterine peritoneum was then grasped with a pickup and entered sharply with the Metzenbaum scissors. This incision was extended laterally, and the bladder flap created digitally. The bladder blade was inserted. The lower uterine segment was then incised using a 10 blade. This incision was extended laterally, and the head delivered atraumatically. Nose and mouth were suctioned, and the cord clamped and cut. The was handed to the awaiting reimbursement liaison. The placenta was removed manually. The uterus exteriorized and cleared of all clots and debris. There was a large fibroid superior to the incision, which prevented closure of the lower uterine segment. This fibroid was then removed before closure. Then, using 0 Biosyn, the lower uterine segment was then closed in a running locked fashion. The second layer of the same suture was used as a means to provide excellent hemostasis, and the pelvis was then completely irrigated. The uterus was returned to the abdomen. The peritoneum was closed using 2-0 Biosyn, the fascia was reapproximated using 0 Vicryl in a running fashion, and the skin was closed with jeffery. Patient tolerated the procedure well. Patient was then taken to PACU in stable condition. PATHOLOGY: Placenta and fibroid. MATY COTE M.D. VICENTA/[id number]
== END 2019-04-04 12:00 | disposition home or self-care (01) | DRG 540 ==
LOC: JLDR 23:40 → J3W 03-31 10:59
PROVIDERS: ADMIT Obstetrics & Gynecology; ATTEND Obstetrics & Gynecology
PROC: 10D00Z1 Extraction of Products of Conception, Low, Open Approach (ICD-10-PCS; principal; 2019-03-31)
PROC: 0UB90ZZ Excision of Uterus, Open Approach (ICD-10-PCS; 2019-03-31)
PROC: 30233N1 Transfusion of Nonautologous Red Blood Cells into Peripheral Vein, Percutaneous Approach (ICD-10-PCS; 2019-04-02)
DX: O62.1 Secondary uterine inertia (principal); O36.63X0 Maternal care for excessive fetal growth, third trimester, not applicable or unspecified; O34.13 Maternal care for benign tumor of corpus uteri, third trimester; D25.9 Leiomyoma of uterus, unspecified; O99.02 Anemia complicating childbirth; Z3A.39 39 weeks gestation of pregnancy; Z37.0 Single live birth
CPT/HCPCS: 36415; 36430; 36511; 80048; 82803; 85025; 85610; 85730; 86593; 86850; 86900; 86901; 86922; 88305-TC; 88307-TC; 90715; 93970-TC; P9038; P9058

== ENCOUNTER 2021-09-22 21:28 | Inpatient (IN) | payer SELFPAY ==
[2021-09-22] MEDS ORDERED: SODIUM CHLORIDE 0.9% 500 ML INFUS.BAG IV ONE (23:21)
[2021-09-22] MEDS ORDERED: ACETAMINOPHEN 1000 MG/100 ML BAG IVPB ONE (23:21)
[2021-09-22] MEDS ORDERED: FAMOTIDINE 20 MG/50 ML IVPB 20 MG/50 ML MG IVPB ONE (23:21)
[2021-09-22] MEDS ORDERED: ONDANSETRON 4 MG/2 ML VIAL IVPUSH ONE (23:21)
[2021-09-22] MEDS ORDERED: morphine CARPU-JECT 2 MG/1 ML DISP.SYRIN IVPUSH ONE (23:43)
[2021-09-22] MEDS ORDERED: MAG HYDROX/AL HYDROX/SIMETH 30 ML UNIT-DOSE CUP PO ONE (23:57)
[2021-09-23] MEDS ORDERED: ONDANSETRON 4 MG/2 ML VIAL ONE ×3 (00:29→12:45)
[2021-09-23] MEDS ORDERED: MAG HYDROX/AL HYDROX/SIMETH 30 ML UNIT-DOSE CUP ONE (00:29)
[2021-09-23] MEDS ORDERED: ACETAMINOPHEN INJECTION 100 ML IVPB ONE ×2 (00:29→11:33)
[2021-09-23] MEDS ORDERED: FAMOTIDINE 20 MG/50 ML IVPB 20 MG/50 ML MG IVPB ONE (00:30)
[2021-09-23 00:42] LABS: BASO % 1.4 % (0-2.0); EOS % 1.3 % (0-4.5); HEMATOCRIT 40.1 % (32.4-45.2); HEMOGLOBIN 13.5 GM/dL (10.7-15.3); LYMPH % 20.6 % (8-40); MCH 29.4 pg (25.7-33.7); MCHC 33.5 g/dl (32.0-36.0); MEAN CELL VOLUME 87.7 fl (80-96); MEAN PLT VOLUME 8.1 fl (7.5-11.1); MONO % 7.9 % (3.8-10.2); NEUT % 68.8 % (42.8-82.8); PLATELET COUNT 318 10^3/uL (134-434); RBC 4.57 M/mm3 (3.60-5.2); RDW 12.7 % (11.6-15.6); WHITE BLOOD COUNT 11.6 K/mm3 (4.0-10.0)
[2021-09-23 00:52] LABS: CHLORIDE 102 mmol/L (98-107); SODIUM 138 mmol/L (136-145)
[2021-09-23 00:54] LABS: ALBUMIN 4.2 g/dl (3.4-5.0); ANION GAP 7 MMOL/L (8-16); BLOOD UREA NITROGEN 5.9 mg/dL (7-18); CALCIUM 9.6 mg/dL (8.5-10.1); CO2 29 mmol/L (21-32); LIPASE 68 U/L (73-393)
[2021-09-23 00:55] LABS: GLUCOSE,RANDOM 116 mg/dL (74-106)
[2021-09-23 00:57] LABS: CREATININE 0.7 mg/dL (0.55-1.3); SGOT/AST 27 U/L (15-37); SGPT/ALT 91 U/L (13-61)
[2021-09-23 00:59] LABS: BILIRUBIN,TOTAL 0.8 mg/dL (0.2-1); TOT PROT 8.1 g/dl (6.4-8.2)
[2021-09-23 01:00] LABS: ALK PHOS 91 U/L (45-117)
[2021-09-23] MEDS ORDERED: CEFTRIAXONE 1 GM in DEXTROSE 5%-WATER - 100 ML IVPB ONE (01:51)
[2021-09-23] MEDS ORDERED: CEFTRIAXONE 1 GM/50 ML BAG ONE (02:11)
[2021-09-23] MEDS ORDERED: ACETAMINOPHEN 1000 MG/100 ML BAG IVPB PRN (04:56)
[2021-09-23] MEDS ORDERED: LACTATED RINGERS SOLUTION 1,000 ML/1,000 ML INFUS.BAG IV SCH (05:00)
[2021-09-23] MEDS ORDERED: ONDANSETRON 4 MG/2 ML VIAL IVPUSH PRN ×2 (06:07→13:25)
[2021-09-23] MEDS ORDERED: PIPERACILLIN/TAZOB 3.375 GM 3.375 GM/50 ML BAG IVPB ONE (06:57)
[2021-09-23] MEDS: PIPERACILLIN/TAZOB 3.375 GM 3.375 GM in DEXTROSE 5%-WATER - 50 ML IVPB SCH ×5 (07:05→17:15)
[2021-09-23 09:05] LABS: HEMATOCRIT 37.9 % (32.4-45.2); HEMOGLOBIN 12.6 GM/dL (10.7-15.3); MCH 29.7 pg (25.7-33.7); MCHC 33.4 g/dl (32.0-36.0); MEAN CELL VOLUME 88.9 fl (80-96); MEAN PLT VOLUME 8.1 fl (7.5-11.1); PLATELET COUNT 296 10^3/uL (134-434); RBC 4.26 M/mm3 (3.60-5.2); RDW 12.6 % (11.6-15.6)
[2021-09-23 09:11] LABS: INR 1.13 (0.83-1.09)
[2021-09-23 09:14] LABS: ACTIVATED PTT 28.3 SECONDS (25.2-36.5)
[2021-09-23 09:27] LABS: ALBUMIN 3.8 g/dl (3.4-5.0); CALCIUM 8.7 mg/dL (8.5-10.1)
[2021-09-23 09:28] LABS: BLOOD UREA NITROGEN 6.8 mg/dL (7-18); MAGNESIUM 2.3 mg/dL (1.8-2.4)
[2021-09-23 09:30] LABS: CREATININE 0.6 mg/dL (0.55-1.3)
[2021-09-23 09:32] LABS: BILIRUBIN,TOTAL 0.7 mg/dL (0.2-1); TOT PROT 7.1 g/dl (6.4-8.2)
[2021-09-23] MEDS ORDERED: PROPOFOL 20 ML ONE ×2 (09:37→09:38)
[2021-09-23] MEDS ORDERED: MIDAZOLAM HCL 2 MG/2 ML SINGLE DOSE VIAL ONE (09:38)
[2021-09-23] MEDS ORDERED: LIDOCAINE HCL/PF 2% SDV 5ML VIAL ONE (09:39)
[2021-09-23] MEDS ORDERED: DEXAMETHASONE SOD PHOSPHATE 4 MG/1 ML VIAL ONE (09:39)
[2021-09-23] MEDS ORDERED: PANTOPRAZOLE SODIUM 40 MG VIAL IVPUSH SCH (10:00)
[2021-09-23] MEDS ORDERED: ROCURONIUM BROMIDE 50 MG/5 ML SYRINGE ONE (10:09)
[2021-09-23] MEDS ORDERED: SUCCINYLCHOLINE CHLORIDE 200 MG/10 ML SYRINGE ONE (10:09)
[2021-09-23] MEDS ORDERED: BUPIVACAINE HCL/PF 0.5% (5MG/ML) 10 ML VIAL IJ ONE ×2 (10:32)
[2021-09-23] MEDS ORDERED: ESMOLOL HCL 100,000 MCG/10 ML VIAL ONE (10:34)
[2021-09-23] MEDS ORDERED: KETOROLAC TROMETHAMINE 30 MG/1 ML VIAL ONE (11:03)
[2021-09-23] MEDS ORDERED: SUGAMMADEX SODIUM 200 MG/2 ML VIAL ONE (12:01)
[2021-09-23] MEDS ORDERED: KETOROLAC TROMETHAMINE 30 MG/1 ML VIAL IVPUSH PRN (12:49)
[2021-09-23] MEDS: LACTATED RINGERS SOLUTION 1,000 ML/1,000 ML INFUS.BAG IV SCH ×2 (13:25→14:45)
[2021-09-23] MEDS ORDERED: DEXTROSE 5%-WATER - 50 ML IVPB ONE (16:57)
[2021-09-23] MEDS ORDERED: PIPERACILLIN/TAZOBACTAM 3.375 GM VIAL IVPB ONE (16:57)
[2021-09-23] MEDS: ACETAMINOPHEN 1000 MG/100 ML BAG IVPB PRN (21:29)
[2021-09-24] MEDS ORDERED: PIPERACILLIN/TAZOBACTAM 3.375 GM VIAL IVPB ONE ×4 (00:35→23:22)
[2021-09-24] MEDS ORDERED: DEXTROSE 5%-WATER - 50 ML IVPB ONE ×4 (00:35→23:23)
[2021-09-24] MEDS: PIPERACILLIN/TAZOB 3.375 GM 3.375 GM in DEXTROSE 5%-WATER - 50 ML IVPB SCH ×3 (01:00→18:25)
[2021-09-24] MEDS ORDERED: PIPERACILLIN/TAZOB 3.375 GM 3.375 GM in DEXTROSE 5%-WATER - 50 ML IVPB SCH (03:00)
[2021-09-24 09:36] LABS: HEMOGLOBIN 11.4 GM/dL (10.7-15.3); RDW 12.5 % (11.6-15.6)
[2021-09-24 09:46] LABS: BASO % 0.3 % (0-2.0); EOS % 0.8 % (0-4.5); HEMATOCRIT 33.6 % (32.4-45.2); LYMPH % 35.3 % (8-40); MEAN CELL VOLUME 88.2 fl (80-96); MEAN PLT VOLUME 7.6 fl (7.5-11.1); MONO % 6.5 % (3.8-10.2); NEUT % 57.1 % (42.8-82.8); PLATELET COUNT 252 10^3/uL (134-434)
[2021-09-24 09:59] LABS: CALCIUM 8.5 mg/dL (8.5-10.1)
[2021-09-24 10:00] LABS: BLOOD UREA NITROGEN 9.4 mg/dL (7-18)
[2021-09-24 10:04] LABS: CREATININE 0.8 mg/dL (0.55-1.3)
[2021-09-24] MEDS: PANTOPRAZOLE SODIUM 40 MG VIAL IVPUSH SCH (10:29)
[2021-09-24] MEDS: oxyCODONE HCL 5 MG TABLET PO PRN ×2 (15:38→21:12)
[2021-09-24] MEDS: LACTATED RINGERS SOLUTION 1,000 ML/1,000 ML INFUS.BAG IV SCH (18:32)
[2021-09-24] MEDS: ACETAMINOPHEN 1000 MG/100 ML BAG IVPB PRN (23:27)
[2021-09-25] MEDS: PIPERACILLIN/TAZOB 3.375 GM 3.375 GM in DEXTROSE 5%-WATER - 50 ML IVPB SCH ×3 (01:14→18:06)
[2021-09-25] MEDS: BENZOCAINE/MENTH/CETYLPYRD CL 1 EACH LOZENGE MM PRN ×3 (03:11→15:49)
[2021-09-25] MEDS: oxyCODONE HCL 5 MG TABLET PO PRN ×3 (03:24→23:11)
[2021-09-25 04:19] LABS: EPI CELLS 12 /uL (0-25.1); HYALINE CASTS 0 /uL (0-3.1); URINE APPEARANCE CLEAR; URINE BACTERIA 0 /uL (0-1359); URINE BILIRUBIN NEGATIVE (NEGATIVE); URINE COLOR YELLOW; URINE GLUCOSE (UA) NEGATIVE (NEGATIVE); URINE KETONE NEGATIVE (NEGATIVE); URINE LEUK ESTERASE NEGATIVE (NEGATIVE); URINE NITRITE NEGATIVE (NEGATIVE); URINE PROTEIN NEGATIVE (NEGATIVE); URINE RBC 45 /uL (0-23.9); URINE WBC 11 /uL (0-25.8)
[2021-09-25] MEDS ORDERED: DEXTROSE 5%-WATER - 50 ML IVPB ONE ×2 (09:34→17:37)
[2021-09-25] MEDS ORDERED: PIPERACILLIN/TAZOBACTAM 3.375 GM VIAL IVPB ONE ×2 (09:34→17:37)
[2021-09-25] MEDS: PANTOPRAZOLE SODIUM 40 MG VIAL IVPUSH SCH (09:40)
[2021-09-25 09:54] LABS: BASO % 0.6 % (0-2.0); EOS % 2.9 % (0-4.5); HEMATOCRIT 34.6 % (32.4-45.2); HEMOGLOBIN 11.6 GM/dL (10.7-15.3); LYMPH % 45.6 % (8-40); MCH 29.9 pg (25.7-33.7); MCHC 33.5 g/dl (32.0-36.0); MEAN CELL VOLUME 89.4 fl (80-96); MEAN PLT VOLUME 7.8 fl (7.5-11.1); MONO % 6.3 % (3.8-10.2); NEUT % 44.6 % (42.8-82.8); PLATELET COUNT 269 10^3/uL (134-434); RBC 3.87 M/mm3 (3.60-5.2); RDW 12.7 % (11.6-15.6); WHITE BLOOD COUNT 6.1 K/mm3 (4.0-10.0)
[2021-09-25 10:09] LABS: ALBUMIN 3.3 g/dl (3.4-5.0); BLOOD UREA NITROGEN 7.8 mg/dL (7-18); MAGNESIUM 2.1 mg/dL (1.8-2.4)
[2021-09-25 10:12] LABS: CREATININE 0.6 mg/dL (0.55-1.3)
[2021-09-25 10:14] LABS: BILIRUBIN,TOTAL 0.5 mg/dL (0.2-1); TOT PROT 6.5 g/dl (6.4-8.2)
[2021-09-25 12:02] VITALS: BMI 38.5
[2021-09-26] MEDS ORDERED: PIPERACILLIN/TAZOBACTAM 3.375 GM VIAL IVPB ONE ×3 (00:07→17:16)
[2021-09-26] MEDS ORDERED: DEXTROSE 5%-WATER - 50 ML IVPB ONE ×3 (00:08→17:16)
[2021-09-26] MEDS: PIPERACILLIN/TAZOB 3.375 GM 3.375 GM in DEXTROSE 5%-WATER - 50 ML IVPB SCH ×3 (01:06→17:21)
[2021-09-26] MEDS: oxyCODONE HCL 5 MG TABLET PO PRN ×2 (06:09→17:21)
[2021-09-26] MEDS: BENZOCAINE/MENTH/CETYLPYRD CL 1 EACH LOZENGE MM PRN ×3 (06:10→22:08)
[2021-09-26 09:18] LABS: HEMATOCRIT 33.5 % (32.4-45.2); HEMOGLOBIN 11.1 GM/dL (10.7-15.3); MCH 29.6 pg (25.7-33.7); MCHC 33.2 g/dl (32.0-36.0); MEAN CELL VOLUME 89.3 fl (80-96); MEAN PLT VOLUME 7.3 fl (7.5-11.1); PLATELET COUNT 274 10^3/uL (134-434); RBC 3.75 M/mm3 (3.60-5.2); RDW 12.4 % (11.6-15.6); WHITE BLOOD COUNT 6.5 K/mm3 (4.0-10.0)
[2021-09-26 09:59] LABS: ALBUMIN 3.2 g/dl (3.4-5.0)
[2021-09-26 10:01] LABS: BLOOD UREA NITROGEN 7.8 mg/dL (7-18); MAGNESIUM 2.5 mg/dL (1.8-2.4)
[2021-09-26 10:03] LABS: PHOSPHOROUS 4.4 mg/dL (2.5-4.9)
[2021-09-26 10:08] LABS: CREATININE 0.6 mg/dL (0.55-1.3)
[2021-09-26 10:10] LABS: BILIRUBIN,TOTAL 0.3 mg/dL (0.2-1); TOT PROT 6.4 g/dl (6.4-8.2)
[2021-09-26] MEDS: PANTOPRAZOLE SODIUM 40 MG VIAL IVPUSH SCH (10:45)
[2021-09-26] MEDS: ENOXAPARIN NA (PORCINE) 40 MG/0.4 ML DISP.SYRIN SQ SCH ×2 (13:44→22:08)
[2021-09-26] MEDS ORDERED: ACETAMINOPHEN 500 MG TABLET (FP) PO PRN (15:35)
[2021-09-27] MEDS: PIPERACILLIN/TAZOB 3.375 GM 3.375 GM in DEXTROSE 5%-WATER - 50 ML IVPB SCH ×2 (03:00→09:40)
[2021-09-27] MEDS ORDERED: PIPERACILLIN/TAZOBACTAM 3.375 GM VIAL IVPB ONE ×2 (03:46→09:35)
[2021-09-27] MEDS ORDERED: DEXTROSE 5%-WATER - 50 ML IVPB ONE ×2 (03:46→09:35)
[2021-09-27] MEDS: PANTOPRAZOLE SODIUM 40 MG VIAL IVPUSH SCH (09:40)
[2021-09-27] MEDS: ENOXAPARIN NA (PORCINE) 40 MG/0.4 ML DISP.SYRIN SQ SCH (09:40)
[2021-09-27] MEDS: BENZOCAINE/MENTH/CETYLPYRD CL 1 EACH LOZENGE MM PRN (10:26)
[2021-09-27] MEDS: oxyCODONE HCL 5 MG TABLET PO PRN (11:21)
[2021-09-27 15:16] VITALS: BP 123/61; PULSE 93; TEMP 98.6
== END 2021-09-27 18:38 | disposition home or self-care (01) | DRG 263 ==
LOC: JER 21:28 → JERBED 09-23 03:08 → J8W 09-23 08:52
PROVIDERS: ADMIT Internal Medicine; ATTEND Internal Medicine
PROC: 0FT44ZZ Resection of Gallbladder, Percutaneous Endoscopic Approach (ICD-10-PCS; principal; 2021-09-23 10:00)
DX: K80.00 Calculus of gallbladder with acute cholecystitis without obstruction (principal); D25.9 Leiomyoma of uterus, unspecified; K82.A1 Gangrene of gallbladder in cholecystitis; U07.1 COVID-19; E66.9 Obesity, unspecified; Z68.38 Body mass index [BMI] 38.0-38.9, adult; K76.0 Fatty (change of) liver, not elsewhere classified; R11.2 Nausea with vomiting, unspecified; D27.0 Benign neoplasm of right ovary
CPT/HCPCS: 36415; 71045-TC-FY; 76705-TC; 80048; 80053; 81003; 82550; 82728; 83615; 83690; 83735; 84100; 84484; 84703; 85025; 85027; 85379; 85610; 85730; 86140; 86850; 86900; 86901; 87040; 87070; 87075; 87086; 87205; 88304-TC; 93005; 93010; 94010; 94760; 99285-25; C9803; J0131; U0003; U0005

== ENCOUNTER 2024-12-23 10:20 | Emergency (ER) | payer OTHER ==
[2024-12-23 10:45] VITALS: BMI 37.8
[2024-12-23 11:18] LABS: EPI CELLS >36 /uL (0-25.1); HYALINE CASTS 10 /uL (0-3.1); URINE APPEARANCE TURBID; URINE BILIRUBIN 1+ (NEGATIVE); URINE COLOR DK YELLOW; URINE GLUCOSE (UA) NEGATIVE (NEGATIVE); URINE KETONE TRACE (NEGATIVE); URINE LEUK ESTERASE 1+ (NEGATIVE); URINE NITRITE POSITIVE (NEGATIVE); URINE PROTEIN 3+ (NEGATIVE); URINE RBC 8622 /uL (0-23.9); URINE WBC 603 /uL (0-25.8)
[2024-12-23 12:01] LABS: URINE BACTERIA 99 /uL (0-1359)
[2024-12-23] MEDS ORDERED: CEFTRIAXONE 1 G/50 ML PREMIX 50 ML IVPB ONE (12:05)
[2024-12-23] MEDS: CEFTRIAXONE 1,000 MG in DEXTROSE 5%-WATER - 50 ML IVPB ONE (12:17)
[2024-12-23] MEDS: SODIUM CHLORIDE 0.9% 1000 ML INFUS.BAG IV ONE (12:17)
[2024-12-23 12:28] LABS: ABSOLUTE IMMATURE GRANULOCYTES 0.04 x10^3/uL (0.0-0.031); BASOPHILS # 0.03 x10^3/uL (0.01-0.08); EOSINOPHIL % 0.6 % (0.7-5.8); EOSINOPHILS # 0.07 x10^3/uL (0.04-0.36); HEMATOCRIT 39.4 % (34.1-44.9); HEMOGLOBIN 13.2 g/dL (11.2-15.7); MCHC 33.5 g/dl (32.2-35.5); MEAN CELL VOLUME 88.7 fl (79.4-94.8); MEAN PLT VOLUME 9.6 fl (9.4-12.3); MONOCYTE # 0.63 x10^3/uL (0.24-0.86); MONOCYTE % 5.3 % (4.7-12.5); PLATELET COUNT 280 x10^3/uL (182-369); RDW 12.9 % (12.1-16.8)
[2024-12-23 12:42] LABS: CALCIUM 9.4 mg/dL (8.5-10.1); POTASSIUM 3.9 mmol/L (3.5-5.1)
[2024-12-23 12:44] LABS: BLOOD UREA NITROGEN 9.9 mg/dL (7-18)
[2024-12-23] MEDS: KETOROLAC TROMETHAMINE 30 MG/1 ML VIAL IVPUSH ONE (12:45)
[2024-12-23] MEDS ORDERED: KETOROLAC TROMETHAMINE 15 MG/ML VIAL ONE (12:45)
[2024-12-23 12:47] LABS: CREATININE 0.6 mg/dL (0.55-1.3)
[2024-12-23] MEDS: SODIUM CHLORIDE 500 ML IV STA (14:27)
[2024-12-23 15:59] VITALS: BP 115/68; PULSE 83; RESP 16; TEMP 98.3
== END 2024-12-23 16:00 | disposition home or self-care (01) ==
LOC: JER 10:20
PROC: 3E03329 Introduction of Other Anti-infective into Peripheral Vein, Percutaneous Approach (ICD-10-PCS; principal; 2024-12-23)
PROC: 3E0333Z Introduction of Anti-inflammatory into Peripheral Vein, Percutaneous Approach (ICD-10-PCS; 2024-12-23)
PROC: 3E0337Z Introduction of Electrolytic and Water Balance Substance into Peripheral Vein, Percutaneous Approach (ICD-10-PCS; 2024-12-23)
DX: N30.01 Acute cystitis with hematuria (principal); N83.9 Noninflammatory disorder of ovary, fallopian tube and broad ligament, unspecified; D23.10 Other benign neoplasm of skin of unspecified eyelid, including canthus; R10.31 Right lower quadrant pain
CPT/HCPCS: 36415; 74176-TC; 76856-TC; 80048; 81003; 84703; 85025; 87086; 99285-25